=== PATIENT | male | born 1965 | race African-American/Black ===

== ENCOUNTER 2018-04-14 07:51 | Day surgery (SDC) | payer MEDICAID, SELFPAY ==
--- NOTE | 2018-04-14 | COLBX_PTH ---
PATIENT: SHERWIN LOPEZ LOC: EN U#:[id number] AGE/SX: 52/M ROOM: RE04/14/[address]: Dr. Bernard Cedeño MD : 1965 BED: DIS: 04/14/2018 SPEC #: [id number] RECD: 04/14/18 12:12 STATUS: TEMI LEIGH #: [id number] SILVERIO: 04/14/18 00:[address]: Bernard Cedeño DEPT: SURGICAL PATHOLOGY RECD BY: Tyrell Handy ENTERED: 04/14/18 12:13 SP TYPE: COLON BX OT DR: Dr. Sair Abel MD Tissues: A - Sigmoid colon biopsy B - Rectum, NOS Procedures: Surgery Specimen Level IV HEADER OPERATION: Colonoscopy PRE-OP DIAGNOSIS: Screening TISSUE SUBMITTED: A - Sigmoid polyps, B - Rectum polyps MICROSCOPIC DIAGNOSIS A. Sigmoid polyps, biopsy: Fragments of hyperplastic polyp. B. Rectum polyps, biopsy: Fragments of tubular adenoma. Inflammatory polyp. See comment. YASMINE:abbie 04/17/18 COMMENT B. The pedunculated polyp consists of inflammatory polyp. MICROSCOPIC DESCRIPTION Slides are reviewed. GROSS DESCRIPTION A - Received in fixative is one container labeled with the patient's name and designated sigmoid polyps. The specimen consists of two irregular fragments of light burciaga soft tissue that in aggregate measure 0.5 x 0.3 x 0.2 cm. The specimen is totally submitted in one cassette. B - Received in fixative is one container labeled with the patient's name and designated rectum polyp. The specimen consists of a pedunculated polyp measuring 0.5 x 0.5 x 0.5 cm and the pedicle measures 0.5 cm in length and 0.5 cm in diameter. The base of the polyp is inked black. The polyp is bisected. Also present in the container are multiple fragments of burciaga soft tissue measuring in aggregate 1 x 0.5 x 0.1 cm. The entire specimen is submitted in one cassette. / YASMINE:abbie 04/14/18 TC:1 CPT: 15987 x2
--- NOTE | 2018-04-14 07:56 | US_ITS ---
STUDY: THYROID ULTRASOUND REASON FOR EXAM: Male, 52 years old. Goiter. TECHNIQUE: Ultrasound evaluation of the thyroid was performed with real-time and static dhillon-scale imaging. COMPARISON: None. FINDINGS: RIGHT LOBE: The right lobe of the thyroid gland measures 9.8 x 3.5 x 4.6 cm. There is a homogeneous echotexture. 4 solid nodules scattered in the upper, mid and lower pole. They measure 3.2 x 3.2 x 2.9 cm, 1.9 x 1.5 x 1.7 cm, 0.5 x 0.6 x 0.3 cm and 1.2 x 1.1 x 1.0 cm respectively. The thyroid nodules have regular margins. LEFT LOBE: The left lobe of the thyroid gland measures 9.4 x 3.2 x 4.4 cm. There is a homogeneous echotexture. 2 solid nodules located in the upper pole and lower pole. They measure 0.8 x 1.1 x 0.7 cm and 2.5 x 2.3 x 2.0 cm respectively. ISTHMUS: The isthmus measures 1.3 cm. . US/Thyroid IMPRESSION: 1. 4 solid thyroid nodules in the right thyroid lobe. The dominant thyroid nodules are feasible for ultrasound-guided core biopsy. 2. 2 solid nodules in the left thyroid lobe. The left lower pole dominant thyroid nodule is feasible for ultrasound-guided core biopsy. Electronically Signed: Jose Luis Black MD at 9:31 EDT , Service support ,
[2018-04-14 08:47] VITALS: BP 128/75; PULSE 83; RESP 14; TEMP 36.3; O2SAT 99; BMI 32.1
--- NOTE | 2018-04-14 09:13 | H&P.OPEN ---
Past Medical/Surgical History - Planned Operation Planned Operative Procedure/s: cscope open access Date of Operative Procedure: 04/14/18 Permit Signed: No S.O.S: No Is This Patient Having a Total Joint: No - Previous Hospitalizations/Surgeries HX Hospitalizations: No Any Problems With Anesthesia: No You/Your Family Experience Fever (Hyperthermia) With Anes: No Cholinesterase deficiency: No - Cardiovascular Hx Chest Pain within Last 2 months: No Hx of Irregular Heartbeat and/or Afib: No Hx Heart Attack: No Hx Congestive Heart Failure: No Hx Rheumatic Fever: No Hx Hypertension: No Hx Internal Defibrillator: No Hx Pacemaker: No Hx Cardiac Catheterization: No Hx Cardiac Surgery/Stents/Etc.: No Hx Stress Test: No HX Edema: No Hx Pain in Legs when Walking/Leg Cramps: No - Respiratory Chronic Cough: Yes - smoker HX of Shortness of Breath: No Hoarseness: No Hx Chronic Obstructive Pulmonary Disease (COPD): No Hx Asthma: No Hx Emphysema: No Hx Sleep Apnea: No Hx Oxygen Use at Home: No Hx Respiratory Tract Infection/Cold (presently): No Do You Snore Loudly (louder than talking or can be heard): Yes Do You Often Feel Tired/ Fatigued/ Sleepy Dring Daytime?: Yes Has Anyone Observed You Stop Breathing During Sleep?: Yes Result (for STOP score): Positive Hx Smoking: Yes - 1ppd for 25 yrs Smoking Status: Current every day smoker - Gastrointestinal Hx Gastroesophageal Reflux: No Hx Gastrointestinal Disorders: No Hx Gastrointestinal Bleed: No Hx Ulcer: No Hx Hiatal Hernia: No Difficulty Chewing/Swallowing: No Recent Onset of Swallowing Problems: No Special diet followed at home: No Hx Unplanned Weight Loss of 20#: No HX Unplanned Weight Gain of 20#: No - Neurological Hx Seizures: No HX Syncope/Blackout Spells/Unconsciousness: No Hx CVA/Stroke: No Hx Transient Ischemic Attacks (TIA): No Hx Multiple Sclerosis: No Hx Parkinson's Disease: No Hx Head/Neck Injury: No Hx Headaches: No Hx Back Injury/Pain: No Recent Onset of Speech Difficulty: No Restless Legs: No Does patient have nerve stimulator: No Patient instructed to have device shut off: No Rep notified?: No - Blood Disorder Hx Leukemia: No Bleeding Tendencies: No Hx Deep Vein Thrombosis: No Hx High Cholesterol: No Blood Transmitted Disease: No Hx Hepatitis: No Hx Cirrhosis: No Hx Anemia: No Hx Blood Disorders: No - Genitourinary Hx Renal Disease: No - Musculoskeletal Hx Arthritis: No Hx Rheumatoid Arthritis: No Hx Gout: No Recent Onset of an Orthopedic Problem: No - Endocrine Hx Diabetes: No Thyroid Disease: No Hx Steroid Therapy: No - Psycho/Social Hx Substance Use: No Hx Alcohol Use: Yes - occ Hx Anxiety: No Hx Depression: No Mental Illness: No Hx Dementia: No - Miscellaneous Hx Cancer: No Recent Exposure to Contagious Disease: No Active MRSA: No Hx of C-Diff: No Any Loose Teeth: No Allergies No Known Allergies Allergy (Unverified 04/14/18 08:45) - Discharge Is Pt Admitted From a Jail, or a Longterm: No Who Could Help: family After D/C, Where Do you Plan to Go: Return Home - Physical Exam General: Alert, Oriented x3, Cooperative Lungs: Normal air movement Cardiovascular: Regular rate, Regular Rhythm Abdomen: Soft, Non Tender, Non-Distended Vital Signs Temp Pulse Resp BP Pulse Ox 97.4 F L 83 14 128/75 H 99 04/14/18 08:47 04/14/18 08:47 04/14/18 08:47 04/14/18 08:47 04/14/18 08:47 Oxygen Delivery Method Room Air Weight: 229 lb 15.074 oz Body Mass Index (BMI) 32.1 Assessment/Plan 52-year-old male for screening colonoscopy 1. Patient reports he has no family history of colon cancer. He is having no issues at this time. He denies any abdominal pain or blood in his stool. 2. I explained endoscopy in detail to the patient. I explained the risks including but not limited to stroke or heart attack with anesthesia, perforation of the GI tract, bleeding, infection. I explained that any of these could necessitate further emergency surgery. The patient understands and all questions were answered sufficiently. The patient wishes to proceed with procedure. Bernard Cedeño MD Pager: [phone] [address] [place] [address], [address] [place] [address] Office: Surgery Risks - Colonoscopy Risks Include but are not Limited To: Risks include but are not limited to: Bleeding, perforation requiring further surgery, inability to complete colonoscopy requiring barium enema.
[2018-04-14 09:55] VITALS: BP 128/75; BP 96/56; PULSE 78; RESP 16; TEMP 36.4; O2SAT 94
[2018-04-14 10:00] VITALS: BP 101/74; BP 128/75; PULSE 73; RESP 16; O2SAT 98
[2018-04-14 10:05] VITALS: BP 128/75; BP 94/75; PULSE 76; RESP 16; O2SAT 100
[2018-04-14 10:10] VITALS: BP 105/88; BP 128/75; PULSE 69; RESP 16; TEMP 36.2; O2SAT 100
[2018-04-14 10:20] VITALS: BP 128/75
[2018-04-14 11:16] LABS: Absolute Neutrophil Count 2.5 X10^3/uL (2.0-7.7); Basophil# 0.02 X10^3/uL; Basophil% 0.4 % (0-1); Eosinophil# 0.18 X10^3/uL; Eosinophils% 3.5 % (0-5); Hematocrit 47.5 % (40-54); Hemoglobin 15.8 g/dl (13.0-16.5); Lymphocyte % 40.8 % (19-41); Mean Corp Hgb Conc 33.3 g/gl (32-36); Mean Corpuscular Volume 93.1 fL (80-94); Mean Platelet Vol. 10.4 fl (6.2-12.0); Monocyte% 5.8 % (0-10); Neutrophil # 2.54 X10^3/uL (2.7-7.7); Neutrophil % 49.3 % (47-70); POSITIVE COUNT NO; POSITIVE DIFFERENTIAL NO; POSITIVE MORPHOLOGY NO; Platelet Count 236 K/mm3 (150-450); RBC Distribution Width SD 44.3 fl (35.1-43.9); White Blood Count 5.2 K/mm3 (4.4-11.0)
[2018-04-14 11:48] LABS: ALB/GLOB Ratio 1.2 RATIO (0.9-2.4); AST(SGOT) 13 U/L (15-37); Alanine Aminotransfer ALT/SGPT 25 U/L (16-61); Alkaline Phosphatase 64 U/L (45-117); Anion Gap 5 (5-15); BUN 9 mg/dL (7-18); BUN/Creat Ratio 6.3 RATIO (10-20); Calcium,Total 8.6 mg/dL (8.5-10.1); Chloride 105 mmol/L (98-107); Cholesterol 198 mg/dL (200); Creatinine, Serum 1.43 mg/dL (0.70-1.30); EST Glomerular Filtration Rate 56 mL/min (>60); Est Glom Filt Rate - Afr Amer 67 mL/min (>60); Estimated Creatinine Clearance 65.82 ml/min; Globulin 3.4 g/dL (2.2-4.2); Glucose 98 mg/dL (74-106); High Density Lipoprotein 39 mg/dL; PSA,Total - Annual Screen 0.56 ng/mL (0.00-4.00); Protein, Total 7.4 g/dL (6.4-8.2); Sodium Level 139 mmol/L (136-145); T4 Free Direct 0.99 ng/dL (0.76-1.46); Thyroid Stim Hormone (TSH) 0.45 uIU/mL (0.358-3.74); Triglycerides 146 mg/dL; Very Low Density Lipoprotein 29 mg/dL (5-40)
== END 2018-04-14 10:47 | disposition home or self-care (01) ==
LOC: EN 07:52 → AC 08:32
PROVIDERS: Family Provider Internal Medicine; PCP Internal Medicine; Referring Provider Surgery; Visit Provider Surgery
PROC: 0DJD8ZZ Inspection of Lower Intestinal Tract, Via Natural or Artificial Opening Endoscopic (ICD-10-PCS; CPT 45378; principal; 2018-04-14 08:55)
DX: Z12.11 Encounter for screening for malignant neoplasm of colon (principal); K63.5 Polyp of colon; D12.8 Benign neoplasm of rectum; Z00.00 Encounter for general adult medical examination without abnormal findings; E04.9 Nontoxic goiter, unspecified; Z12.5 Encounter for screening for malignant neoplasm of prostate; F17.200 Nicotine dependence, unspecified, uncomplicated
CPT/HCPCS: 45385; 36415; 76536; 80053; 80061; 84153; 84439; 84443; 85025; 88305; J7120; A4216; G0103

== ENCOUNTER → 2019-06-07 11:21 | Outpatient (CLI) | payer OTHER, SELFPAY ==
[2019-06-07 10:42] VITALS: BMI 33.9
[2019-06-07 12:21] LABS: Hematocrit 46.7 % (40-54); Hemoglobin 15.7 g/dL (13.0-16.5); Mean Corp Hgb Conc 33.6 g/dL (32-36); Mean Corpuscular Hgb 31.2 pg (27.0-32.0); Mean Corpuscular Volume 92.8 fL (80-94); Mean Platelet Vol. 10.3 fl (6.2-12.0); Platelet Count 277 K/mm3 (150-450); RBC Distribution Width CV 12.6 % (11.6-14.6); RBC Distribution Width SD 43.4 fl (35.1-43.9); Red Blood Count 5.03 M/mm3 (4.6-6.2); White Blood Count 4.1 K/mm3 (4.4-11.0)
[2019-06-07 12:38] LABS: ALB/GLOB Ratio 1.2 RATIO (0.9-2.4); AST(SGOT) 13 U/L (15-37); Alanine Aminotransfer ALT/SGPT 25 U/L (16-61); Albumin, Serum 4.3 g/dL (3.2-5.0); Alkaline Phosphatase 68 U/L (45-117); Anion Gap 7 (5-15); BUN 14 mg/dL (7-18); BUN/Creat Ratio 11.3 RATIO (10-20); Calcium,Total 9.1 mg/dL (8.5-10.1); Chloride 107 mmol/L (98-107); Cholesterol 203 mg/dL (200); Creatinine, Serum 1.24 mg/dL (0.70-1.30); EST Glomerular Filtration Rate 65 mL/min (>60); Est Glom Filt Rate - Afr Amer 79 mL/min (>60); Globulin 3.5 g/dL (2.2-4.2); Glucose 97 mg/dL (74-106); Hemoglobin A1c 5.6 % (4.2-6.3); High Density Lipoprotein 57 mg/dL; Potassium 4.4 mmol/L (3.5-5.1); Protein, Total 7.8 g/dL (6.4-8.2); Sodium Level 140 mmol/L (136-145); Thyroid Stim Hormone (TSH) 0.73 uIU/mL (0.358-3.74); Triglycerides 99 mg/dL; Very Low Density Lipoprotein 20 mg/dL (5-40)
== END ==
LOC: BIMLAB 11:21
PROVIDERS: Family Provider Internal Medicine; PCP Internal Medicine; Visit Provider Nurse Practitioner Family
DX: Z00.00 Encounter for general adult medical examination without abnormal findings (principal); N52.9 Male erectile dysfunction, unspecified; E04.2 Nontoxic multinodular goiter
CPT/HCPCS: 36415; 80053; 80061; 83036; 84153; 84439; 84443; 85027; G0103

== ENCOUNTER → 2019-08-16 09:22 | Outpatient (CLI) | payer OTHER, SELFPAY ==
[2019-06-07 10:42] VITALS: BMI 33.9
--- NOTE | 2019-08-16 09:26 | US_ITS ---
STUDY: THYROID ULTRASOUND REASON FOR EXAM: Male, 53 years old. FU NODULES TECHNIQUE: Ultrasound evaluation of the thyroid was performed with real-time and static dhillon-scale imaging. COMPARISON: Prior thyroid ultrasound of April 14, 2018 FINDINGS: RIGHT LOBE: The right lobe of the thyroid gland measures 7.6 x 3.5 x 3.2 cm. There is a homogeneous echotexture. There is a 3.3 x 3.2 x 3.0 cm solid well-defined regular nodule with internodular vascularity lower pole. There is a 0.7 x 0.7 x 0.6 cm well defined irregular complex nodule mid pole. There is a 0.8 x 0.7 x 0.6 cm well-defined irregular complex nodule lower pole. LEFT LOBE: The left lobe of the thyroid gland measures 5.9 x 3.5 x 2.4 cm. There is a homogeneous echotexture. There is a 1.1 x 1.0 x 0.7 cm well defined solid nodule and a 0.6 x 0.6 x 0.4 well-defined regular complex nodule. There is an partly exophytic nodule of the inferior pole which is solid measuring 2.8 x 2.5 x 2.1 cm ISTHMUS: The isthmus measures 13.9 millimeter. US/Thyroid IMPRESSION: Enlarged multinodular goiter. The overall size of the thyroid has decreased from the prior exam. There are 3 identified nodules in the right thyroid which are not substantially changed from the prior exam. The largest nodule is a well-defined solid nodule measuring 3.3 x 3.2 x 3.0 cm not substantially changed in size or appearance from the prior exam. 2 additional subcentimeter complex nodules are identified. There are 3 identified nodules in the left thyroid. A solid nodule measuring 1.1 x 1.0 x 0.7 cm in the mid pole remains unchanged from the prior exam. The largest nodule is a 2.8 x 2.5 x 2.1 cm solid nodule protruding from the lower pole that is not substantially changed in size or appearance from the prior exam. One additional subcentimeter complex nodule is identified. Electronically Signed: Suze Amaya MD at 16:24 EST , Service support ,
== END ==
PROVIDERS: Family Provider Internal Medicine; PCP Internal Medicine; Referring Provider Nurse Practitioner Family; Visit Provider Nurse Practitioner Family
DX: E04.9 Nontoxic goiter, unspecified (principal)
CPT/HCPCS: 76536

== ENCOUNTER → 2019-09-28 12:46 | Outpatient (CLI) | payer OTHER, SELFPAY ==
--- NOTE | 2019-09-28 09:40 | ASPS_PTH ---
PATIENT: SHERWIN LOPEZ LOC: [facility] U#:[id number] AGE/SX: 59/M ROOM: RE09/28/[address]: Dr. Mj Ngo MD : 1965 BED: DIS: SPEC #: [id number] RECD: 09/28/19 12:34 STATUS: TEMI LEIGH #: [id number] SILVERIO: 09/28/19 09:[address]: Mj Ngo DEPT: CYTOLOGY RECD BY: Booker Leung ENTERED: 09/28/19 13:23 SP TYPE: ASPIRATION OTHR DR: Dr. Sari Abel MD Tissues: A - Thyroid gland, NOS B - Thyroid gland, NOS Procedures: Special Stain Group II Cytology Other HEADER OPERATION: Fine needle aspiration of right and left thyroid PRE-OP DIAGNOSIS: Nontoxic multinodular goiter E04.2 TISSUE SUBMITTED: A - Right thyroid FNA x10, B - Left thyroid FNA x10 DIAGNOSIS CYTOLOGY A. Right thyroid nodule, FNA (smears): Consistent with benign follicular nodule. Adequate for evaluation. B. Left thyroid nodule, FNA (smears): Consistent with benign follicular nodule. Adequate for evaluation. SJ:rg 10/01/19 COMMENT Correlation with clinical, radiologic findings and appropriate follow up are necessary. Case has been reviewed in consultation with Dr. Olmos who concurs with the above diagnosis. IDC:AM CYTOLOGY STUDY Slides are reviewed. CYTOLOGY GROSS A - Received are ten smears labeled with the patient's name and designated per the requisition as right thyroid. Submitted for staining. B - Received are ten smears labeled with the patient's name and designated per the requisition as left thyroid. Submitted for staining. / abbie 09/28/19 TC:5 CPT: 21648 x2
[2019-09-28 11:46] VITALS: BMI 33.9
== END ==
LOC: LABSPEC 12:49
PROVIDERS: PCP Internal Medicine; Referring Provider Surgery; Visit Provider Surgery
DX: E04.2 Nontoxic multinodular goiter (principal)
CPT/HCPCS: 88161; 88313

== ENCOUNTER → 2021-05-15 11:07 | Outpatient (CLI) | payer OTHER, SELFPAY ==
[2021-05-15 12:28] LABS: Absolute Lymphocyte Count 1.98 X10^3/uL (0.83-4.51); Absolute Neutrophil Count 2.1 X10^3/uL (2.0-7.7); Basophil# 0.03 X10^3/uL; Basophil% 0.6 % (0-1); Eosinophil# 0.31 X10^3/uL; Eosinophils% 6.3 % (0-5); Hematocrit 45.4 % (40-54); Hemoglobin 15.5 g/dL (13.0-16.5); Lymphocyte # 1.98 X10^3/ul (0.83-4.51); Lymphocyte % 40.3 % (19-41); Mean Corp Hgb Conc 34.1 g/dL (32-36); Mean Corpuscular Hgb 31.4 pg (27.0-32.0); Mean Corpuscular Volume 92.1 fL (80-94); Mean Platelet Vol. 10.4 fl (6.2-12.0); Monocyte# 0.52 X10^3/uL; Monocyte% 10.6 % (0-10); NRBC Flagged by Analyzer 0 % (0-5); Neutrophil # 2.05 X10^3/uL (2.7-7.7); Neutrophil % 41.8 % (47-70); Platelet Count 282 K/mm3 (150-450); RBC Distribution Width CV 13.1 % (11.6-14.6); RBC Distribution Width SD 44.6 fl (35.1-43.9); Red Blood Count 4.93 M/mm3 (4.6-6.2); White Blood Count 4.9 K/mm3 (4.4-11.0)
[2021-05-15 13:01] LABS: ALB/GLOB Ratio 1.1 RATIO (0.9-2.4); AST(SGOT) 21 U/L (15-37); Alanine Aminotransfer ALT/SGPT 27 U/L (16-61); Albumin, Serum 3.9 g/dL (3.2-5.0); Alkaline Phosphatase 70 U/L (45-117); Anion Gap 4 (5-15); BUN 16 mg/dL (7-18); BUN/Creat Ratio 13.1 RATIO (10-20); Calcium,Total 9.3 mg/dL (8.5-10.1); Chloride 107 mmol/L (98-107); Cholesterol 195 mg/dL (200); Creatinine, Serum 1.22 mg/dL (0.70-1.30); EST Glomerular Filtration Rate 66 mL/min (>60); Est Glom Filt Rate - Afr Amer 80 mL/min (>60); Globulin 3.7 g/dL (2.2-4.2); Glucose 139 mg/dL (74-106); High Density Lipoprotein 53 mg/dL; PSA,Total - Annual Screen 1.35 ng/mL (0.00-4.00); Protein, Total 7.6 g/dL (6.4-8.2); Sodium Level 138 mmol/L (136-145); Thyroid Stim Hormone (TSH) 0.43 uIU/mL (0.358-3.74); Triglycerides 172 mg/dL; Very Low Density Lipoprotein 34 mg/dL (5-40)
== END ==
LOC: BIMLAB 11:08
PROVIDERS: PCP Internal Medicine; Referring Provider Nurse Practitioner Family; Visit Provider Nurse Practitioner Family
DX: E04.9 Nontoxic goiter, unspecified (principal); G47.30 Sleep apnea, unspecified; Z12.5 Encounter for screening for malignant neoplasm of prostate
CPT/HCPCS: 36415; 80053; 80061; 84153; 84443; 85025; G0103

== ENCOUNTER → 2021-06-12 11:41 | Outpatient (CLI) | payer OTHER, SELFPAY ==
[2021-06-12 12:32] LABS: Hemoglobin A1c 5.6 % (3.8-5.6)
== END ==
LOC: BIMLAB 11:41
PROVIDERS: PCP Internal Medicine; Referring Provider Nurse Practitioner Family; Visit Provider Nurse Practitioner Family
DX: R73.09 Other abnormal glucose (principal)
CPT/HCPCS: 36415; 83036

== ENCOUNTER → 2022-01-22 | Outpatient (CLI) | payer OTHER, SELFPAY ==
[2022-01-22 12:31] LABS: Absolute Lymphocyte Count 2.44 X10^3/uL (0.83-4.51); Absolute Neutrophil Count 3.3 X10^3/uL (2.0-7.7); Basophil# 0.03 X10^3/uL; Basophil% 0.5 % (0-1); Eosinophil# 0.14 X10^3/uL; Eosinophils% 2.2 % (0-5); Hematocrit 45.5 % (40-54); Hemoglobin 15.1 g/dL (13.0-16.5); Lymphocyte # 2.44 X10^3/ul (0.83-4.51); Lymphocyte % 37.6 % (19-41); Mean Corp Hgb Conc 33.2 g/dL (32-36); Mean Corpuscular Volume 93.4 fL (80-94); Mean Platelet Vol. 10.6 fl (6.2-12.0); Monocyte# 0.61 X10^3/uL; Monocyte% 9.4 % (0-10); NRBC Flagged by Analyzer 0 % (0-5); Neutrophil # 3.26 X10^3/uL (2.7-7.7); Neutrophil % 50.1 % (47-70); Platelet Count 272 K/mm3 (150-450); RBC Distribution Width CV 13.1 % (11.6-14.6); RBC Distribution Width SD 44.9 fl (35.1-43.9); Red Blood Count 4.87 M/mm3 (4.6-6.2); White Blood Count 6.5 K/mm3 (4.4-11.0)
[2022-01-22 13:05] LABS: ALB/GLOB Ratio 1.3 RATIO (0.9-2.4); AST(SGOT) 20 U/L (15-37); Alanine Aminotransfer ALT/SGPT 20 U/L (16-61); Albumin, Serum 4.5 g/dL (3.2-5.0); Alkaline Phosphatase 70 U/L (45-117); Anion Gap 5 (5-15); BUN 15 mg/dL (7-18); BUN/Creat Ratio 12.5 RATIO (10-20); Calcium,Total 9.5 mg/dL (8.5-10.1); Chloride 105 mmol/L (98-107); Cholesterol 209 mg/dL (200); EST Glomerular Filtration Rate 67 mL/min (>60); Est Glom Filt Rate - Afr Amer 81 mL/min (>60); Globulin 3.4 g/dL (2.2-4.2); Glucose 85 mg/dL (74-106); High Density Lipoprotein 57 mg/dL; Potassium 4.1 mmol/L (3.5-5.1); Protein, Total 7.9 g/dL (6.4-8.2); Sodium Level 138 mmol/L (136-145); Thyroid Stim Hormone (TSH) 1.02 uIU/mL (0.358-3.74); Triglycerides 118 mg/dL; Very Low Density Lipoprotein 24 mg/dL (5-40)
== END | disposition home or self-care (01) ==
LOC: BIMLAB 11:33
PROVIDERS: PCP Internal Medicine; Referring Provider Physician Assistant; Visit Provider Physician Assistant
DX: R03.0 Elevated blood-pressure reading, without diagnosis of hypertension (principal); G47.30 Sleep apnea, unspecified; E04.9 Nontoxic goiter, unspecified; Z72.0 Tobacco use
CPT/HCPCS: 36415; 80053; 80061; 84443; 85025